=== PATIENT | male | born 1970 | race Caucasian/White ===

== ENCOUNTER 2021-01-06 14:49 | Emergency (ER) | payer OTHER ==
[~2021-01-06] VITALS: Ht 172.7 cm; Wt 74.8 kg
[2021-01-06 15:06] VITALS: BP_SYST 161
[2021-01-06] MEDS ORDERED: LORA-259 PO (15:23)
[2021-01-06] MEDS ORDERED: LORazepam 1 MG TABLET PO ONE (15:30)
[2021-01-06 17:17] VITALS: BP_SYST 157
== END 2021-01-06 17:17 | disposition home or self-care (01) ==
LOC: SED 14:49
DX: R06.4 Hyperventilation (principal); F41.9 Anxiety disorder, unspecified
CPT/HCPCS: 99283